=== PATIENT | female | born 1950 | race Asian ===

== ENCOUNTER 2020-04-14 09:17 | Emergency (ER) | payer MEDICARE, OTHER ==
[2020-04-14 09:44] VITALS: BP 151/74
[2020-04-14 09:59] LABS: BILIRUBIN,URINE NEGATIVE (NEGATIVE); GLUCOSE, URINE (UA) NEGATIVE (NEGATIVE); KETONES,URINE (UA) TRACE mg/dL (NEGATIVE); LEUKOCYTE ESTERASE, URINE NEGATIVE (NEGATIVE); NITRITE,URINE POSITIVE (NEGATIVE); OCCULT BLOOD,URINE LARGE (NEGATIVE); PH,URINE 5.5 PH (5.0-7.5); PROTEIN,URINE 100 mg/dL (NEGATIVE); UROBILINOGEN,URINE 0.2 (NORMAL) E.U./dL (NORMAL)
[2020-04-14 10:17] LABS: CLARITY,URINE TURBID (CLEAR)
[2020-04-14 10:18] LABS: BACTERIA,URINE Moderate /HPF (None Seen); RBC,URINE TNTC /HPF (0-5); SQUAMOUS EPITHELIAL CELL,UR FEW Squamous (<= Few); YEAST,URINE PRESENT
[2020-04-14] MEDS ORDERED: PHENAZOPYRIDINE 100 MG TABLET PO STA (10:47)
[2020-04-14] MEDS ORDERED: SULFAMETH/TRIMETH DS 800/160 MG TABLET PO STA (10:47)
--- NOTE | 2020-04-14 10:48 | ED Physician Documentation ---
History of Present Illness - Stated complaint Stated Complaint: FEMALE - Chief complaint Chief Complaint: UTI - Additonal information Additional information: Patient comes emergency department complaining of dysuria that started last night, along with lower abdominal pain. Patient states that the pain feels like more of a burning feeling. She denies any nausea or vomiting. No diarrhea. No fevers or chills. Patient states she is otherwise healthy and has no other complaints at this time. Review of Systems Ten Systems: 10 systems reviewed and negative Constitutional: reports: Reviewed and negative Eyes: reports: Reviewed and negative Ears: reports: Reviewed and negative Nose: reports: Reviewed and negative Throat: reports: Reviewed and negative Cardiac: reports: Reviewed and negative Respiratory: reports: Reviewed and negative GI: reports: Abdominal Pain : reports: Dysuria, Frequency, Hematuria Skin: reports: Reviewed and negative Musculoskeletal: reports: Reviewed and negative Neurologic: reports: Reviewed and negative Psychiatric: reports: Reviewed and negative Endocrine: reports: Reviewed and negative Immunocompromised: reports: Reviewed and negative PD PAST MEDICAL HISTORY - Past Medical History Past Medical History: Yes Cardiovascular: Hypertension, High cholesterol Respiratory: None Endocrine/Autoimmune: Type 2 diabetes GI: GERD 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 : None HEENT: None Psych: None Musculoskeletal: None Derm: None - Past Surgical History Past Surgical History: Yes /EXTERNAL GRINDER 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: Hysterectomy - Present Medications Home Medications: Ambulatory Orders Medication Instructions Recorded Confirmed Aspirin [Aspir 81] 81 mg ORAL DAILY 10/19/14 10/19/14 Atorvastatin Calcium [Lipitor] 20 mg ORAL DAILY 10/19/14 10/19/14 Glimepiride 2 mg ORAL DAILY 10/19/14 10/19/14 Levothyroxine [Synthroid] 0 mg ORAL DAILY 10/19/14 10/19/14 Metformin HCl 1,000 mg ORAL BID 10/19/14 10/19/14 oxyCODONE [Roxicodone] 5 mg PO Q6H PRN #10 tablet 10/19/14 raNITIdine HCL [Zantac 75] 75 mg ORAL BID 10/19/14 10/19/14 Phenazopyridine HCl [Pyridium] 200 mg PO TID PRN #6 tablet 04/14/20 Sulfamethox/Trimeth 800/160 1 each PO BID #14 tablet 04/14/20 [Bactrim Ds 800/160] - Allergies Allergies/Adverse Reactions: Allergies Allergy/AdvReac Type Severity Reaction Status Date / Time No Known Drug Allergies Allergy Verified 04/14/20 09:23 - Social History Does the pt smoke?: No Smoking Status: Never smoker Does the pt drink ETOH?: No Does the pt have substance abuse?: No - Immunizations Immunizations are current?: Yes PD ED PE NORMAL - Vitals Vital signs reviewed: Yes - General General: Alert and oriented X 3, No acute distress - HEENT HEENT: Atraumatic, PERRL, EOMI, Moist mucous membranes - Neck Neck: Supple, no meningeal sign - Cardiac Cardiac: RRR, No murmur - Respiratory Respiratory: No respiratory distress, Clear bilaterally - Abdomen Abdomen: Soft, Non tender, Non distended - Derm Derm: Normal color, Warm and dry, No rash - Extremities Extremities: No deformity - Neuro Neuro: Alert and oriented X 3 - Psych Psych: Normal mood, Normal affect Results - Vitals Vitals: Vital Signs - 24 hr 04/14/20 04/14/20 09:21 09:38 Temperature 35.7 C L Heart Rate 97 90 Respiratory 16 18 Rate Blood Pressure 171/73 H 151/74 H O2 Saturation 95 96 Oxygen O2 Source Room air - Labs Labs: Laboratory Tests 04/14/20 09:31 Urine Color RED/BLOODY Urine Clarity TURBID Urine pH 5.5 Ur Specific [place] >=1.030 H Urine Protein 100 H Urine Glucose (UA) NEGATIVE Urine Ketones TRACE Urine Occult Blood LARGE H Urine Nitrite POSITIVE H Urine Bilirubin NEGATIVE Urine Urobilinogen 0.2 (NORMAL) Ur Leukocyte Esterase NEGATIVE Urine RBC TNTC H Urine WBC 4-5 Ur Squamous Epith Cells FEW Squamous Urine Bacteria Moderate H Urine Yeast PRESENT Ur Microscopic Review INDICATED Urine Culture Comments INDICATED PD MEDICAL DECISION MAKING - ED course Complexity details: reviewed results, re-evaluated patient, considered di fferential, d/w patient ED course: Patient was given her first dose of antibiotics in the emergency department and was given a prescription for at home, as well as for Pyridium. We have discussed home management and symptoms, as well as usual indications for return. Departure - Departure Disposition: 01 Home, Self Care Clinical Impression: Urinary tract infection Qualifiers: Urinary tract infection type: acute cystitis Hematuria presence: with hematuria Qualified Code(s): N30.01 - Acute cystitis with hematuria Instructions: ED UTI Cystitis Female Prescriptions: Phenazopyridine HCl [Pyridium] 200 mg PO TID PRN #6 tablet PRN Reason: dysuria Sulfamethox/Trimeth 800/160 [Bactrim Ds 800/160] 1 each PO BID #14 tablet
== END 2020-04-14 10:52 | disposition home or self-care (01) ==
LOC: ED 09:17
DX: N30.01 Acute cystitis with hematuria (principal); I10 Essential (primary) hypertension; E11.9 Type 2 diabetes mellitus without complications; Z79.84 Long term (current) use of oral hypoglycemic drugs
CPT/HCPCS: 81001; 81003; 87086; 99283; 99284

== ENCOUNTER 2020-10-20 11:05 | Outpatient (CLI) | payer MEDICARE, OTHER | END 2020-10-20 11:06 | disposition home or self-care (01) | LOC: LAB 11:05 | PROVIDERS: ATTEND General Practice | DX: Z01.812 Encounter for preprocedural laboratory examination (principal); Z20.828 Contact with and (suspected) exposure to other viral communicable diseases; K64.9 Unspecified hemorrhoids ==

== ENCOUNTER 2021-10-08 10:21 | Emergency (ER) | payer MEDICARE, OTHER ==
--- NOTE | 2021-10-08 11:49 | XRAY Report ---
PROCEDURE: Wrist 4 View RT INDICATIONS: Trauma TECHNIQUE: 4 views of the wrist were acquired. COMPARISON: None FINDINGS: Bones: No fractures or dislocations. No suspicious bony lesions. Radiocarpal degenerative narrowin g is present. First CMC narrowing is present. There is nondisplaced lucency at the ulna styloid. Scaphoid view: No visualized fracture. Soft tissues: No suspicious soft tissue calcifications. IMPRESSION: 1. Degenerative changes 2. Nondisplaced lucency at the ulna styloid of indeterminate age, possibly chronic. However, given hi story of recent trauma, recommend correlation of point tenderness, as acute fracture cannot be exclud ed. Reviewed by: Arlen Jones MD on 10/08/2021 11:48 AM PST Approved by: Arlen Jones MD on 10/08/2021 11:48 AM PST Station ID: [id number]
--- NOTE | 2021-10-08 11:51 | ED Physician Documentation ---
PD HPI UPPER EXT INJURY - Stated complaint Stated Complaint: R HAND SWOLLEN - Chief complaint Chief Complaint: Ext Problem - History obtained from History obtained from: Patient - History of Present Illness Location: Right, Wrist, Hand, Finger (base of thumb) Type of injury: No: Fall, Twist Where injury occurred: Home Timing - duration: Weeks (1) Timing - details: Gradual onset, Still present (much worse the past 1-2 days.) Worsened by: Moving, Palpating (radial dorsal wrist adn dorsal base of thumb.) Associated symptoms: Swelling. 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 : None HEENT: None Psych: None Musculoskeletal: None Derm: None - Past Surgical History Past Surgical History: 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 - Present Medications Home Medications: Ambulatory Orders Medication Instructions Recorded Confirmed Aspirin [Aspir 81] 81 mg ORAL DAILY 10/19/14 10/19/14 Atorvastatin Calcium [Lipitor] 20 mg ORAL DAILY 10/19/14 10/19/14 Glimepiride 2 mg ORAL DAILY 10/19/14 10/19/14 Levothyroxine [Synthroid] 0 mg ORAL DAILY 10/19/14 10/19/14 Metformin HCl 1,000 mg ORAL BID 10/19/14 10/19/14 oxyCODONE [Roxicodone] 5 mg PO Q6H PRN #10 tablet 10/19/14 raNITIdine HCL [Zantac 75] 75 mg ORAL BID 10/19/14 10/19/14 Phenazopyridine HCl [Pyridium] 200 mg PO TID PRN #6 tablet 04/14/20 Sulfamethox/Trimeth 800/160 1 each PO BID #14 tablet 20 [Bactrim Ds 800/160] HYDROcod/ACETAM 5/325 [[place] 5/325] 1 ea PO Q6H PRN #12 tablet 10/08/21 dexAMETHasone [Decadron] 4 mg PO DAILY #5 tablet 10/08/21 - Allergies Allergies/Adverse Reactions: Allergies Allergy/AdvReac Type Severity Reaction Status Date / Time No Known Drug Allergies Allergy Verified 10/08/21 11:05 - Social History Does the pt smoke?: No Smoking Status: Never smoker Does the pt drink ETOH?: No Does the pt have substance abuse?: No - Immunizations Immunizations are current?: Yes - POLST Patient has POLST: No PD ED PE NORMAL - Vitals Vital signs reviewed: Yes - General General: Alert and oriented X 3, Well developed/nourished, Other (appears in pain with any movement of wrist and thumb.) - Derm Derm: Normal color, Warm and dry, Other (no redness nor sores. ) - Extremities Extremities: Other (tender dorsal base of thumb and along first MC to radial aspect of dorsal wrist. Not tender at ulnar side. Mild swelling in area. No redness. ) - Neuro Neuro: No motor deficit, No sensory deficit Results - Vitals Vitals: Vital Signs - 24 hr 10/08/21 10/08/21 11:02 12:47 Temperature 36.6 C Heart Rate 94 90 Respiratory 15 15 Rate Blood Pressure 136/76 H 130/75 O2 Saturation 99 99 Oxygen O2 Source Room air - Rads (name of study) hand Radiology: Prelim report reviewed (lucency at ulnar styloid, appears chronic. Correlate clinically. ), See rad report PD MEDICAL DECISION MAKING - ED course Complexity details: reviewed results (no acute abnormal in area of pain. Not tender at ulnar styloid. ), considered differential, d/w patient Departure - Departure Disposition: 01 Home, Self Care Clinical Impression: Hand tendonitis Condition: Stable Record reviewed to determine appropriate education?: Yes Follow-Up: NAZIA ANNE DO [Primary Care Provider] - Prescriptions: dexAMETHasone [Decadron] 4 mg PO DAILY #5 tablet HYDROcod/ACETAM 5/325 [Gil[place] 5/325] 1 ea PO Q6H PRN #12 tablet PRN Reason: Pain Comments: Use the thumb and wrist splint to protect motion and decrease the irritation and inflammation. Decadron steroid anti-inflammatory daily for the next 5 days. Tylenol 500 mg 4 times a day for the next several days. To that add hydrocodone every 6 hours if needed for pain. Recheck if not improved well over the next few days. [facility]. I am prescribing a short course of narcotic pain medication for you. These are potentially dangerous and addictive medications that should be used carefully. These medications may constipate you. Take an [id number] stool softener such as docusate twice daily with plenty of water while taking these medications. If you go 24 hours without a bowel movement, take [id number] MiraLAX, per package instructions. Do not drink or drive while taking these medications. If you received narcotic or sedating medications while in the emergency department do not drive for 24 hours. Store this medication in a safe, secure place and out of reach of children. It is a violation of federal law to give or sell this medication to another person or to use in a manner other than prescribed. The ED will not refill narcotic prescriptions, including prescriptions lost or stolen. You can dispose of unwanted medications at the [facility] office or at several pharmacies such as [facility]. Discharge Date/Time: 10/08/21 12:48
[2021-10-08] MEDS ORDERED: HYDROcod/ACETAM 5/325 MG TABLET PO STA (12:01)
[2021-10-08] MEDS ORDERED: DEXAMETHASONE 10 MG/ML VIAL PO STA (12:01)
[2021-10-08] MEDS ORDERED: CHERRY SYRUP 10 ML UDC PO ONE (12:01)
[2021-10-08 12:48] VITALS: BP 130/75
== END 2021-10-08 12:48 | disposition home or self-care (01) ==
LOC: ED 10:21
DX: M77.8 Other enthesopathies, not elsewhere classified (principal)
CPT/HCPCS: 73110; 99283; A9270

== ENCOUNTER 2023-10-06 09:45 | Outpatient (CLI) | payer MEDICARE, OTHER ==
--- NOTE | 2023-10-06 12:49 | DEXA Report ---
PROCEDURE: Dexa Spine and/or Hip INDICATIONS: POST MENOPAUSAL TECHNIQUE: Dual energy x-ray absorptiometry (DXA) was performed on a [employer] System. Regions measur ed are the AP Spine, femoral neck, and if needed forearm. COMPARISON: None FINDINGS: Lumbar Spine: Bone Mineral Density 1.320 g/cm/cm,T score 1.2. Normal bone density Left Femoral Neck: Bone Mineral Density 0.765 g/cm/cm, T score -2.0. Left Hip: Bone Mineral Density 0.789 g/cm/cm,T score -1.7. Osteopenia (T score greater or equal to -1.0: NORMAL) (T score from -1.1 to -2.4: OSTEOPENIA) (T score less than or equal to -2.5 to: OSTEOPOROSIS) Impression: By WHO criteria, this patient has low bone density (osteopenia). Patient is at increased risk for fracture Patients with diagnosis of osteoporosis or osteopenia should have regular bone mineral density assess ment. For those eligible for Medicare, routine testing is allowed once every 2 years. Testing frequ ency can be increased for patients who have rapidly progressing disease or for those who are receivin g medical therapy to restore bone mass. Reviewed by: Oleg Navarro MD on 10/06/2023 12:47 PM PST Approved by: Oleg Navarro MD on 10/06/2023 12:47 PM PST Station ID: [id number]
== END 2023-10-06 09:46 | disposition home or self-care (01) ==
LOC: DI 09:45
PROVIDERS: ATTEND Family Medicine
DX: M85.89 Other specified disorders of bone density and structure, multiple sites (principal); Z78.0 Asymptomatic menopausal state